=== PATIENT | female | born 1990 | race Caucasian/White ===

== ENCOUNTER 2016-11-10 03:09 | Emergency (ER) | payer SELFPAY ==
[~2016-11-10] VITALS: Ht 157.5 cm; Wt 58.8 kg
[~2016-11-10 03:09] MED LIST: AZITHROMYCIN250 MG PO; PRENATAL TABLE1 EACH PO; VICODIN 5-3001 EACH PO; ZOFRAN4 MG PO
[2016-11-10 05:41] VITALS: BP 107/70
== END 2016-11-10 05:42 | disposition home or self-care (01) ==
LOC: EME 03:09
DX: F41.9 Anxiety disorder, unspecified (principal); F17.200 Nicotine dependence, unspecified, uncomplicated
CPT/HCPCS: 90839; 93005; 99281; 99283